=== PATIENT | male | born 1995 | race Caucasian/White ===

== ENCOUNTER 2022-02-28 15:52 | Emergency (ER) | payer OTHER ==
[~2022-02-28] VITALS: Ht 177.8 cm; Wt 87.3 kg
[2022-02-28] MEDS ORDERED: ONDANSETRON PF 4 MG/2 ML VIAL. IVP ONE (16:45)
[2022-02-28] MEDS ORDERED: MORPHINE SULFATE 4 MG/ML DISP.SYRIN. IV ONE (16:45)
--- NOTE | 2022-02-28 16:54 | PHYS DOC ---
General Adult EDM: Chief Complaint: Right shoulder pain HPI: HPI: 26-year-old male presents with right shoulder pain. The patient [place] There was some kind of foot maneuver and the patient thought he dislocated his right shoulder. It feels like it is sitti ng lower than the other side. He has pain but it is tolerable. He has some mild tingling of the fingers but no loss of sensation or discoloration. He denies any other injuries at this time. Review of Systems: Review of Systems: Constitutional: Denies fever or chills Eyes: Denies change in visual acuity HENT: Denies nasal congestion or sore throat Respiratory: Denies cough or shortness of breath Cardiovascular: Denies chest pain or edema GI: Denies abdominal pain, nausea, vomiting, bloody stools or diarrhea : Denies dysuria Musculoskeletal: Right shoulder pain Integument: Denies rash Neurologic: Denies headache, focal weakness or sensory changes Endocrine: Denies polyuria or polydipsia Lymphatic: Denies swollen glands Psychiatric: Denies depression or anxiety Current Medications: Current Meds: Current Medications Medications (Trade) Dose Ordered Sig/Bhavin Start Time Stop Time Status Last Admin Dose Admin Morphine Sulfate (Morphine 4mg Syringe) 4 mg 1X ONCE 02/28/22 16:45 02/28/22 16:46 UNV Ondansetron HCl (Zofran) 4 mg 1X ONCE 02/28/22 16:45 02/28/22 16:46 UNV Physical Exam: PE: Constitutional: Well developed, well nourished, no acute distress, non-toxic appearance. [] HENT: Normocephalic, atraumatic, bilateral external ears normal, oropharynx moist, no oral exudates, nose normal. [] Eyes: PERRLA, EOMI, conjunctiva normal, no discharge. [] Neck: Normal range of motion, no tenderness, supple, no stridor. [] Cardiovascular:Heart rate regular rhythm, no murmur [] Lungs & Thorax: Bilateral breath sounds clear to auscultation [] Abdomen: Bowel sounds normal, soft, no tenderness, no masses, no pulsatile masses. [] Skin: Warm, dry, no erythema, no rash. [] Back: No tenderness, no CVA tenderness. [] Extremities: Tenderness of the right shoulder, sitting lower than left, likely dislocation. [] Neurologic: Alert and oriented X 3, normal motor function, normal sensory function, no focal deficits noted. [] Psychologic: Affect normal, judgement normal, mood normal. [] EKG: EKG: [] Radiology/Procedures: Radiology/Procedures: [] Heart Score: C/O Chest Pain: N/A Risk Factors: Risk Factors: DM, Current or recent (<one month) smoker, HTN, HLP, family history of CAD, obesity. Risk Scores: Score 0 - 3: 2.5% MACE over next 6 weeks - Discharge Home Score 4 - 6: 20.3% MACE over next 6 weeks - Admit for Clinical Observation Score 7 - 10: 72.7% MACE over next 6 weeks - Early Invasive Strategies Course & Med Decision Making: Course & Med Decision Making Pertinent Labs and Imaging studies reviewed. (See chart for details) The patient does have a dislocated right shoulder. I will give him for morphine and 2 of Ativan for pain and as an anxiolytic. The patient would prefer to attempt reduction without more aggressive sedation. I will accommodate him the best I can. The patient was able to tolerate the procedure. I was able to perform the reduction with chest countertraction with a blanket and slow external rotation of the forearm and elbow. The patient tolerated the procedure well. He was placed in a shoulder immobilizer. I have advised that he follow- up with orthopedics and wear his immobilizer until cleared. Patient states verbal understanding. He is stable for discharge at this time. [] Dragon Disclaimer: Dragon Disclaimer: This electronic medical record was generated, in whole or in part, using a voice recognition dictation system. Departure Departure: Impression: Primary Impression: Dislocation of right shoulder joint Disposition: 01 HOME / SELF CARE / HOMELESS Condition: IMPROVED Referrals: PCP,UNKNOWN (PCP) Patient Instructions: Shoulder Dislocation, [id number] Additional Instructions: You need to wear your shoulder immobilizer until cleared by orthopedics. You can follow-up with the [facility] orthopedic group. The phone number to make an appointment is: [phone]. SAROJ HO DO Feb 28, 2022 16:54
--- NOTE | 2022-02-28 17:58 | RAD ---
2 views right shoulder 4:42 PM HISTORY: Pain AP and Y views right shoulder The humeral head projects inferior medial and anterior to the glenoid. The visualized osseous structu res appear grossly intact. IMPRESSION: Anterior dislocation right shoulder. End of impression 1 right shoulder 5:31 PM: AP view right shoulder The glenohumeral relationship is normal. The visualized osseous structures are grossly intact. IMPRESSION: Status post successful reduction of right shoulder dislocation. Electronically signed by: Luis Armando Barajas III, MD (02/28/2022 5:55 PM) [facility]
[2022-02-28 18:15] VITALS: BP 140/79
== END 2022-02-28 18:30 | disposition home or self-care (01) ==
LOC: ER 15:52
DX: S43.004A Unspecified dislocation of right shoulder joint, initial encounter (principal); X58.XXXA Exposure to other specified factors, initial encounter; Y93.89 Activity, other specified; Y92.89 Other specified places as the place of occurrence of the external cause; Y99.8 Other external cause status
CPT/HCPCS: 23650; 73020; 73030; 96374; 96375; 99285; J2060; J2270; J2405